=== PATIENT | female | born 1945 | race Caucasian/White ===

== ENCOUNTER → 2017-01-02 | Outpatient (CLI) | payer MEDICARE, OTHER ==
[~2017-01-02] MED LIST: ADVIL200 M2 PO; ALPRAZOLAM PO; AMLODIPINE BESYL5 MG PO; ASPIRIN PO; ASPIRIN81 M2 PO; BACLOFEN10 MG PO; CARAFATE PO; CARVEDILOL25 M1 PO; CELEXA PO; CITALOPRAM HBR40 MG; DILANTIN PO; DOXYCYCLINE PO; ENALAPRIL MALEA20 MG PO; IBUPROFEN PO; IBUPROFEN800 MG PO; KLONOPIN PO; KLONOPIN1 M1 PO; LAMOTRIGINE100 M1 PO; LISINOPRIL PO; LORTAB 10/500 T1 TAB PO; LORTAB 7.5-5001 TAB PO; LYRICA PO; MILK OF MAGNESIA PO; NEURONTIN800 MG PO; NEXIUM PO; NORCO 10/325 TA1 TAB PO; NORVASC PO; OXYCODONE-ACET1 EAC1 PO; OXYCONTIN20 MG PO; PHENYTOIN SODI100 M4 PO; PREVACID PO; PROTONIX PO; QUESTRAN LIGH4 G/PKT PO; QUETIAPINE FUM100 MG PO; ROBAXIN PO; SEROQUEL PO; SOMA PO; VICODIN 5/1 TAB 5/50 PO; VITAMIN D250000 UNIT PO; ZESTRIL40 MG PO
--- NOTE | ~2017-01-02 | MR113 ---
[facility] A Service of [facility] & [facility] RADIOLOGY TEXT RESULTS PATIENT: KAMRAN GUTIERREZ LOCATION: [facility] : 43 UNIT #: [id number] AGE: [address]: Lino Ro MD SEX: F ORDER DR: [id number] [facility] [address] [place], [place] [address] [id number] O MR#: [id number] Acc #: [id number] NAME: KAMRAN GUTIERREZ : 1945 SEX: F STUDY DATE/TIME: 01/02/2017 11:19 UNIT: [facility] ROOM: STUDY DESCRIPTION: MR Lumbar Wo Contrast Attending Physician: Lino Ro M.D. Referring Physician: Lino Ro M.D. Ordering Physician: Lino Ro M.D. Primary Care Physician: Elpidio Hernandez M.D. MRI CENTER REPORT This report is preliminary unless electronic signature is present. EXAM Lumbar spine MRI without HISTORY Bilateral lower extremity radiculopathy. Pain for 3 years since hip surgery and getting worse. Neuropathy goes down both legs. No history of cancer or trauma. FINDINGS There is normal sagittal alignment. Bone marrow signal intensity is normal. Intervertebral discs are mildly desiccated in general, most apparent lower lumbar levels. The conus medullaris terminates at L2 and is normal. At L1-2, there is mild facet hypertrophy and a minor posterior disc bulge. There is no canal stenosis. No foraminal impingement. At L2-3, mild bilateral facet degenerative change and a minor posterior disc bulge. Mild effacement of the thecal sac. No significant foraminal impingement. At L3-4, there is qrcc-wz-jucjryai facet degenerative change left, milder facet degenerative change right. Mild broad-based posterior disc bulge. Mild right inferior foraminal narrowing. Mild effacement of the anterior thecal sac, more apparent in the right, but no significant central canal stenosis. At L4-5, moderate facet degenerative change bilaterally with a broad posterior protrusion, more prominent to the left than right of midline. There is mild central canal stenosis with mass effect on the trld-hyefgef-qjvp-right right lateral recess. There is mild bilateral foraminal narrowing. [facility] A Service of [facility] RADIOLOGY TEXT RESULTS PATIENT: KAMRAN GUTIERREZ [facility] UNIT #: [id number] AGE: [address]: Lino Ro MD SEX: F ORDER DR: At L5-S1, mild right, omhucral-bb-wufrjd left-sided facet degenerative change with broad-based posterior disc bulge and a small posterior annular fissure. There is mild mass effect on the hjly-mlqkhxs-lbun-right lateral recess. Mild left and oqel-rp-ttfgmxvb right-sided foraminal narrowing. Mild asymmetric atrophy of the left side psoas muscle and moderate atrophy of lower lumbar multifidus musculature. There is partly seen probable right renal cyst. IMPRESSION 1. Lumbar degenerative changes are detailed above. Findings most significant appearing radiographically at L4-5 with mild canal stenosis with mass effect on the left lateral recess in particular. Please refer to the oesqh-ed-phlxf description of findings and correlate with symptoms. NOTE Prior study from 2008 has been restored. On comparison to that exam, the disc extrusion previously noted at L5-S1 has become desiccated with improvement in appearance at this level. Dictated by... Ashly Saleh M.D. THIS IS AN ELECTRONICALLY VERIFIED REPORT Ashly Saleh M.D. at 01/03/2017 7:40 AM SAC/pcl TD: 01/02/2017 22:09 JOB #: [id number] MRI CENTER REPORT Page 1 of 1 COPY
== END | disposition home or self-care (01) ==
LOC: CMRI 10:35
DX: M54.10 Radiculopathy, site unspecified (principal); M47.896 Other spondylosis, lumbar region; M48.06 Spinal stenosis, lumbar region
CPT/HCPCS: 72148